=== PATIENT | male | born 1955 | race Caucasian/White ===

== ENCOUNTER 2021-07-25 14:26 | Emergency (ER) | payer MEDICARE, OTHER ==
[~2021-07-25] VITALS: Ht 170.2 cm; Wt 68.0 kg
--- NOTE | 2021-07-25 17:28 | EKG ---
[facility] [address] [facility] [place] [address] Signed Sinus rhythm with premature atrial complexes Otherwise normal ECG No previous ECGs available Confirmed by ZOYA DESHPANDE MD ([id number]) on 07/25/2021 5:28:18 PM Electronically Signed By: ZOYA DESHPANDE MD 07/25/21 1728 PATIENT NAME: RADHADILIP Electrocardiogram DATE OF : 59 PHYSICIAN: ZOYA DESHPANDE MD REPORT #: [id number] REPORT IS CONFIDENTIAL AND NOT TO BE RELEASED WITHOUT AUTHORIZATION
== END 2021-07-25 17:10 | disposition home or self-care (01) ==
LOC: ED 14:26
DX: R07.9 Chest pain, unspecified (principal); J06.9 Acute upper respiratory infection, unspecified; J45.909 Unspecified asthma, uncomplicated; Z88.8 Allergy status to other drugs, medicaments and biological substances
CPT/HCPCS: 36415; 71045; 71046; 80053; 84484; 85025; 93005; 93010; 99285-25

== ENCOUNTER 2021-08-10 21:51 | Emergency (ER) | payer OTHER, MEDICARE ==
[~2021-08-10] VITALS: Ht 170.2 cm; Wt 80.1 kg
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
[2021-08-10] MEDS ORDERED: AMOX TR-K CLV1 EAC1 PO (22:28)
== END 2021-08-10 22:58 | disposition home or self-care (01) ==
LOC: ED 21:51
DX: S61.451A Open bite of right hand, initial encounter (principal); J45.909 Unspecified asthma, uncomplicated; Z88.6 Allergy status to analgesic agent; Z88.8 Allergy status to other drugs, medicaments and biological substances; W54.0XXA Bitten by dog, initial encounter; Z23 Encounter for immunization
CPT/HCPCS: 90471; 90714; 99283-25

== ENCOUNTER 2021-12-10 14:30 | Emergency (ER) | payer MEDICARE ==
[~2021-12-10] VITALS: Ht 170.2 cm; Wt 77.4 kg
--- NOTE | ~2021-12-10 | EKG ---
[facility] [address] [facility] [place], [place] [address] Draft EKG completed, results pending confirmation PATIENT NAME: DILIP GARCIA JR Electrocardiogram DATE OF : 59 PHYSICIAN: PRELIMINARY REPORT #: [id number] REPORT IS CONFIDENTIAL AND NOT TO BE RELEASED WITHOUT AUTHORIZATION
[~2021-12-10 14:30] MED LIST: AMOX TR-K CLV1 EAC1 PO
[2021-12-10] MEDS ORDERED: NITROGLYCERIN0.4 MG SL (17:04)
== END 2021-12-10 17:37 | disposition home or self-care (01) ==
LOC: ED 14:30
DX: R07.89 Other chest pain (principal); J45.909 Unspecified asthma, uncomplicated; Z88.6 Allergy status to analgesic agent; Z88.8 Allergy status to other drugs, medicaments and biological substances
CPT/HCPCS: 36415; 71045; 80053; 83735; 84484; 85025; 93005; 93010; 96374; 99285-25; J2060

== ENCOUNTER 2022-04-07 18:31 | Emergency (ER) | payer MEDICARE ==
[~2022-04-07] VITALS: Ht 170.2 cm; Wt 77.4 kg
[~2022-04-07 18:31] MED LIST changes: +NITROGLYCERIN0.4 MG SL
[2022-04-07] MEDS ORDERED: LISINOPRIL20 MG PO (21:16)
--- NOTE | 2022-04-08 16:47 | EKG ---
[facility] [address] [place] [address] Signed Normal sinus rhythm Normal ECG When compared with ECG of 10-DEC-2021 14:33, No significant change was found Confirmed by Robles Sosa MD () on 04/08/2022 4:46:55 PM Electronically Signed By: ROBLES SOSA MD 04/08/22 1647 PATIENT NAME: DILIP GARCIA Electrocardiogram DATE OF : 59 PHYSICIAN: ROBLES SOSA MD REPORT #: [id number] REPORT IS CONFIDENTIAL AND NOT TO BE RELEASED WITHOUT AUTHORIZATION
--- NOTE | 2022-04-08 16:48 | EKG ---
[facility] [address] [place] [place] [address] Signed Normal sinus rhythm Normal ECG When compared with ECG of 07-APR-2022 18:36, No significant change was found Confirmed by Robles Sosa MD () on 04/08/2022 4:48:28 PM Electronically Signed By: ROBLES SOSA MD 04/08/22 1648 PATIENT NAME: DILIP GARCIA Electrocardiogram DATE OF : 59 PHYSICIAN: ROBLES SOSA MD REPORT #: [id number] REPORT IS CONFIDENTIAL AND NOT TO BE RELEASED WITHOUT AUTHORIZATION
== END 2022-04-07 23:14 | disposition home or self-care (01) ==
LOC: ED 18:31
DX: I10 Essential (primary) hypertension (principal); J45.909 Unspecified asthma, uncomplicated; Z88.8 Allergy status to other drugs, medicaments and biological substances; Z88.6 Allergy status to analgesic agent
CPT/HCPCS: 36415; 71045; 80053; 81003; 83735; 84484; 85025; 93005; 93010; 96374; 99285-25; J0360

== ENCOUNTER 2024-03-24 08:29 | Emergency (ER) | payer MEDICARE ==
[~2024-03-24] VITALS: Ht 170.2 cm; Wt 75.5 kg
[~2024-03-24 08:29] MED LIST changes: +ADULT LOW DOSE81 MG PO; +ATORVASTATIN CA20 MG PO; +CYCLOBENZAPRINE10 MG PO; +LIDODERM1 EACH TOP; +LISINOPRIL20 MG PO; +METFORMIN HCL500 MG PO; +NAPROSYN500 MG PO
[2024-03-24] MEDS ORDERED: VENTOLIN HFA18 GM INH (08:51)
[2024-03-24 09:40] LABS: ANION GAP 11.1 (7-21); BUN/CREATININE RATIO 11.21 (6.0-28.6); CALCIUM 8.8 mg/dL (8.5-10.1); CREATININE, SERUM 1.07 mg/dL (0.70-1.30); POTASSIUM 4.1 mmol/L (3.5-5.1)
[2024-03-24 10:14] VITALS: BP 132/108
== END 2024-03-24 10:15 | disposition home or self-care (01) ==
LOC: ED 08:29
PROVIDERS: Emergency Medicine
DX: E11.65 Type 2 diabetes mellitus with hyperglycemia (principal); I10 Essential (primary) hypertension; J45.909 Unspecified asthma, uncomplicated; Z79.82 Long term (current) use of aspirin; Z88.5 Allergy status to narcotic agent
CPT/HCPCS: 36415; 80048; 99283

== ENCOUNTER 2024-04-19 14:05 | Emergency (ER) | payer MEDICARE ==
[~2024-04-19] VITALS: Ht 170.2 cm; Wt 74.8 kg
[~2024-04-19 14:05] MED LIST changes: +VENTOLIN HFA18 GM INH
--- OUTSIDE RECORDS SUMMARY | 2024-04-19 14:11 | XMS ---
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 [place] VISIT COUNT (12 MO.) [address] [place] [address] TOTAL 4 NOTE: Visits indicate total known visits. 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 - Type 2 diabetes mellitus with hyperglycemia - Unspecified asthma, uncomplicated 08/08/2023 21:08 [facility] [place] TYPE: Emergency COMPLAINT: - CHEST PAIN DIAGNOSES: - Allergy status to other drugs, medicaments and biological substances - Atherosclerotic heart disease of [place] coronary artery without angina pectoris - Chest pain, unspecified - Essential (primary) hypertension - 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
[2024-04-19] MEDS ORDERED: LIDOCAINE HCL100 ML MT (16:08)
[2024-04-19] MEDS ORDERED: AMOX TR-K CLV1 EAC1 PO (16:08)
[2024-04-19 16:18] VITALS: BP 164/117
== END 2024-04-19 16:18 | disposition home or self-care (01) ==
LOC: ED 14:05
DX: K04.7 Periapical abscess without sinus (principal); K02.9 Dental caries, unspecified; J45.909 Unspecified asthma, uncomplicated; I25.10 Atherosclerotic heart disease of native coronary artery without angina pectoris; E11.9 Type 2 diabetes mellitus without complications; I10 Essential (primary) hypertension; Z89.421 Acquired absence of other right toe(s); Z88.6 Allergy status to analgesic agent; Z88.8 Allergy status to other drugs, medicaments and biological substances
CPT/HCPCS: 99282

== ENCOUNTER 2024-05-15 14:46 | Emergency (ER) | payer MEDICARE ==
[~2024-05-15] VITALS: Ht 170.2 cm; Wt 71.7 kg
[~2024-05-15 14:46] MED LIST changes: +LIDOCAINE HCL100 ML MT
--- OUTSIDE RECORDS SUMMARY | 2024-05-15 14:52 | XMS ---
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 [place] VISIT COUNT (12 MO.) [address] [place] [address] TOTAL 5 NOTE: Visits indicate total known visits. ED/UCC VISIT TRACKING (12 MO.) 05/15/2024 14:46 [facility] [place] TYPE: Emergency COMPLAINT: - HIGH BLOOD PRESSURE 04/19/2024 14:05 [facility] [place] TYPE: Emergency COMPLAINT: - DENTAL PROBLEM DIAGNOSES: - Acquired absence of other right toe(s) - Allergy status to analgesic agent - Allergy status to other drugs, medicaments and biological substances - Atherosclerotic heart disease of [place] coronary artery without angina pectoris - Dental caries, unspecified - Essential (primary) hypertension - Fracture of tooth (traumatic), initial encounter for closed fracture - Periapical abscess without sinus - Type 2 diabetes mellitus without complications - Unspecified asthma, uncomplicated 03/24/2024 08:[address] [facility] [address] [facility] [place] TYPE: Emergency COMPLAINT: - BLOOD SUGAR PROBLEM DIAGNOSES: - Allergy status to narcotic agent - Essential (primary) hypertension - residential (current) use of aspirin - Type 2 diabetes mellitus with hyperglycemia - Unspecified asthma, uncomplicated 08/08/2023 21:[address] [facility] [address] [facility] [place] TYPE: Emergency COMPLAINT: - CHEST PAIN DIAGNOSES: - Allergy status to other drugs, medicaments and biological substances - Atherosclerotic heart disease of [place] coronary artery without angina pectoris - Chest pain, unspecified - Essential (primary) hypertension - residential (current) use of aspirin - Other chest pain - Type 2 diabetes mellitus without complications [facility] [place] [facility] COMPLAINT: - BLOOD PERSURE DIAGNOSES: - Allergy status to other drugs, medicaments and biological substances - Essential (primary) hypertension - Hypotension, unspecified - 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
[2024-05-15] MEDS ORDERED: LIPITOR20 MG PO (15:18)
[2024-05-15 15:42] LABS: BASOPHILS 0.6 % (0-2); EOSINOPHILS 5.4 % (0-6); HEMATOCRIT 49.7 % (35.0-50.0); LYMPHOCYTES 16.6 % (24-44); MCH 31.9 (27-36); MCHC 34.3 g/dl (30-36); MCV 93.2 fl (81-99); MONOCYTES 7.9 % (0-12); NEUTROPHILS 69.5 % (39-80); PLATELET COUNT 189 K/uL (140-440); RBC 5.33 M/ul (4.3-5.7); RDW 13.7 (10.5-15.0)
[2024-05-15 16:05] LABS: ALBUMIN 3.6 g/dL (3.4-5.0); ALBUMIN/GLOBULIN RATIO 1.06 (1.1-2.4); ANION GAP 10.9 (7-21); BILIRUBIN, TOTAL 0.7 ng/dL (0.2-1.0); BUN/CREATININE RATIO 14.81 (6.0-28.6); CREATININE, SERUM 1.08 mg/dL (0.70-1.30); POTASSIUM 3.9 mmol/L (3.5-5.1)
[2024-05-15 16:35] VITALS: BP 138/82
--- NOTE | 2024-05-15 21:48 | EKG ---
[facility] [address] [place] [place] [address] Signed Normal sinus rhythm Normal ECG When compared with ECG of 08-AUG-2023 21:07, No significant change was found Confirmed by Robles Sosa MD () on 05/15/2024 9:48:03 PM Electronically Signed By: ROBLES SOSA MD 05/15/24 2148 PATIENT NAME: DILIP GARCIA Electrocardiogram DATE OF : 59 PHYSICIAN: ROBLES SOSA MD REPORT #: [id number] REPORT IS CONFIDENTIAL AND NOT TO BE RELEASED WITHOUT AUTHORIZATION
== END 2024-05-15 16:37 | disposition home or self-care (01) ==
LOC: ED 14:46
PROVIDERS: Emergency Medicine
DX: E11.65 Type 2 diabetes mellitus with hyperglycemia (principal); I10 Essential (primary) hypertension; I25.10 Atherosclerotic heart disease of native coronary artery without angina pectoris; J45.909 Unspecified asthma, uncomplicated; Z88.8 Allergy status to other drugs, medicaments and biological substances; Z79.84 Long term (current) use of oral hypoglycemic drugs; Z79.899 Other long term (current) drug therapy
CPT/HCPCS: 36415; 80053; 84484; 85025; 93005; 93010; 99283

== ENCOUNTER 2024-11-03 10:48 | Emergency (ER) | payer MEDICARE ==
[~2024-11-03] VITALS: Ht 170.2 cm; Wt 72.1 kg
[~2024-11-03 10:48] MED LIST changes: +LIPITOR20 MG PO
[2024-11-03] MEDS ORDERED: AMOX TR-K CLV1 EAC1 PO (11:29)
[2024-11-03 11:42] VITALS: BP 128/73
== END 2024-11-03 11:42 | disposition home or self-care (01) ==
LOC: ED 10:48
DX: K02.9 Dental caries, unspecified (principal); I10 Essential (primary) hypertension; J45.909 Unspecified asthma, uncomplicated; E11.9 Type 2 diabetes mellitus without complications; Z88.1 Allergy status to other antibiotic agents; Z88.5 Allergy status to narcotic agent
CPT/HCPCS: 99282